=== PATIENT | female | born 1935 | race African-American/Black ===

== ENCOUNTER 2023-11-24 12:52 | Inpatient (IN) | payer MEDICARE ==
[~2023-11-24] VITALS: Ht 162.6 cm; Wt 63.8 kg
[2023-11-24] MEDS ORDERED: SODIUM CHLORIDE 0.9% 1,000 ML IV ONE (13:30)
[2023-11-24 14:29] LABS: BASOPHILS % 0.6 % (0.0-2.0); DIFFERENTIAL COMMENT 0; EOSINOPHILS % 0.1 % (0.0-5.0); HEMATOCRIT. 40.3 % (36.0-48.0); HEMOGLOBIN. 12.4 g/dL (12.0-16.0); LYMPHOCYTES % 13.8 % (20.0-50.0); MEAN CORPUSCULAR HEMOGLOBIN 21.9 pg (28.0-32.0); MEAN CORPUSCULAR HGB CONC 30.7 g/dL (31.0-37.0); MEAN CORPUSCULAR VOLUME 71.5 fL (81.0-99.0); MEAN PLATELET VOLUME 8.1 fl (7.4-10.4); MONOCYTES % 6.6 % (2.0-8.0); NEUTROPHILS % 78.9 % (40.0-76.0); PLATELET 237 x1000/uL (130-400); RED BLOOD CELL COUNT 5.64 mill/uL (4.2-5.4); RED CELL DISTRIBUTION WIDTH 16.2 % (11.6-14.6); WHITE BLOOD COUNT 7.8 x1000/uL (4.5-11.0)
[2023-11-24 14:43] LABS: PARTIAL THROMBOPLASTIN TIME 27.3 sec (23.4-31.0); PROTHROMBIN TIME 11.1 sec (9.6-11.0)
[2023-11-24 15:25] LABS: ALANINE AMINOTRANSFERASE 26 IU/L (10-49); ALBUMIN 4.1 g/dL (3.2-4.8); ASPARTATE AMINOTRANSFERASE 72 IU/L (<34); BILIRUBIN TOTAL 0.7 mg/dL (0.1-1.0); CALCIUM 9.9 mg/dL (8.7-10.4); CARBON DIOXIDE 20 mEq/L (21-32); CHLORIDE 100 mEq/L (98-107); CREATINE KINASE 1362 IU/L (34-145); CREATININE 0.9 mg/dL (0.6-1.0); GLUCOSE 149 mg/dL (70-105); PROTEIN TOTAL 7.5 g/dL (6.0-8.3); SODIUM 135 mEq/L (136-145); UREA NITROGEN BLOOD 41 mg/dL (9-23)
[2023-11-24 15:34] LABS: TROPONIN I HIGH SENSITIVITY 427 ng/L (3.0-34)
[2023-11-24] MEDS ORDERED: ASPIRIN 325MG EC TABLET PO ONE (15:45)
[2023-11-24] MEDS ORDERED: SODIUM CHLORIDE 0.9% 1000ML BAG (SEPSIS BOLUS) IV ONE (16:45)
[2023-11-24] MEDS ORDERED: LEVOFLOXACIN 750MG PREMIX 150 ML IV ONE (16:45)
[2023-11-24 19:50] LABS: TROPONIN I HIGH SENSITIVITY 389 ng/L (3.0-34)
[2023-11-25] MEDS ORDERED: ONDANSETRON HCL 4MG/2ML INJ IV PRN (13:00)
[2023-11-25] MEDS ORDERED: ACETAMINOPHEN 325MG TABLET PO PRN (13:00)
[2023-11-25] MEDS: SODIUM CHLORIDE 0.9% 1,000 ML IV SCH (13:33)
[2023-11-26 03:02] VITALS: BP 150/74; PULSE 84; RESP 17; TEMP 98.7
[2023-11-26 08:00] VITALS: BP 139/83; PULSE 84; RESP 17; TEMP 98.8
[2023-11-26 08:19] LABS: BASOPHILS % 0.1 % (0.0-2.0); EOSINOPHILS % 1.1 % (0.0-5.0); HEMATOCRIT. 33.8 % (36.0-48.0); LYMPHOCYTES % 21.6 % (20.0-50.0); MEAN CORPUSCULAR HEMOGLOBIN 22.5 pg (28.0-32.0); MEAN CORPUSCULAR HGB CONC 32.4 g/dL (31.0-37.0); MEAN CORPUSCULAR VOLUME 69.2 fL (81.0-99.0); MEAN PLATELET VOLUME 8.8 fl (7.4-10.4); MONOCYTES % 10.6 % (2.0-8.0); NEUTROPHILS % 66.6 % (40.0-76.0); PLATELET 194 x1000/uL (130-400); RED BLOOD CELL COUNT 4.89 mill/uL (4.2-5.4); RED CELL DISTRIBUTION WIDTH 15.7 % (11.6-14.6); WHITE BLOOD COUNT 5.2 x1000/uL (4.5-11.0)
[2023-11-26 08:29] LABS: CALCIUM 9.2 mg/dL (8.7-10.4); CARBON DIOXIDE 26 mEq/L (21-32); CHLORIDE 107 mEq/L (98-107); CREATININE 0.7 mg/dL (0.6-1.0); GLUCOSE 191 mg/dL (70-105); SODIUM 138 mEq/L (136-145); UREA NITROGEN BLOOD 20 mg/dL (9-23)
[2023-11-26 08:32] LABS: ADD RBC MORPHOLOGY YES; DIFFERENTIAL COMMENT 1
[2023-11-26] MEDS ORDERED: HYDRALAZINE 20MG/ML VIAL IV PRN (09:00)
[2023-11-26] MEDS ORDERED: ATENOLOL 50 MG TABLET PO SCH (09:00)
[2023-11-26] MEDS ORDERED: DEXTROSE 50% WATER 50ML SYRINGE IV PRN (09:00)
[2023-11-26] MEDS ORDERED: ACETAMINOPHEN 325MG TABLET PO PRN (09:00)
[2023-11-26] MEDS: HEPARIN 5000 UNITS/ML VIAL SUBCUT SCH ×2 (10:14→21:43)
[2023-11-26] MEDS: LEVOFLOXACIN 250MG TABLET PO SCH (10:19)
[2023-11-26] MEDS: SODIUM CHLORIDE 0.9% 1,000 ML IV SCH (11:20)
[2023-11-26] MEDS: BLOOD SUGAR DIAGNOSTIC STRIP TEST SCH ×3 (11:46→21:49)
[2023-11-26 12:00] VITALS: BP 107/98; PULSE 80; RESP 17; TEMP 98.8
[2023-11-26] MEDS: INSULIN LISPRO 100 UNITS/ML SUBCUT SCH ×3 (12:48→21:00)
[2023-11-26] MEDS ORDERED: ASPI-1497 PO (14:00)
[2023-11-26] MEDS ORDERED: ATEN100T PO (14:05)
[2023-11-26] MEDS ORDERED: DILT240C96 PO (14:05)
[2023-11-26] MEDS ORDERED: CHOL400D2 PO (14:05)
[2023-11-26] MEDS ORDERED: BRIM15DR8 EACHEYE (14:05)
[2023-11-26] MEDS ORDERED: DONE23TA3 MT (14:12)
[2023-11-26] MEDS ORDERED: LOVA40TA73 MT (14:12)
[2023-11-26] MEDS ORDERED: OMEP20TA15 PO (14:12)
[2023-11-26] MEDS ORDERED: EMPA25TA PO (14:12)
[2023-11-26] MEDS ORDERED: FLUT30CR TP (14:12)
[2023-11-26] MEDS ORDERED: FERR-71 PO (14:12)
[2023-11-26] MEDS: ASPIRIN 81MG EC TABLET PO SCH (15:39)
[2023-11-26] MEDS: FERROUS SULFATE 325MG TABLET PO SCH (15:39)
[2023-11-26] MEDS: PANTOPRAZOLE 40MG DR TABLET PO SCH ×2 (15:39→21:44)
[2023-11-26 16:00] VITALS: BP 150/74; PULSE 80; RESP 17; TEMP 98.8
[2023-11-26 16:29] LABS: CREATINE KINASE MB FRACTION 6.5 ng/mL (0.5-3.6)
[2023-11-26] MEDS: BRIMONIDINE 0.2% OPHTH DROPS 5ML EACHEYE SCH (18:11)
[2023-11-26 18:19] LABS: ANISOCYTOSIS 1+; MICROCYTOSIS 3+; PLATELET ESTIMATE NORMAL
[2023-11-26 18:20] LABS: OVALOCYTES 1+
[2023-11-26 20:00] VITALS: BP 159/77; PULSE 91; RESP 18; TEMP 98.8
[2023-11-26] MEDS: DONEPEZIL HCL 10MG TABLET PO SCH (21:43)
[2023-11-26] MEDS: ATORVASTATIN CALCIUM 10MG TABLET PO SCH (21:44)
[2023-11-27] VITALS: BP 147/70; PULSE 91; RESP 18; TEMP 99.3
[2023-11-27 04:13] VITALS: BP 150/75; PULSE 85; RESP 17; TEMP 98.6
[2023-11-27] MEDS: SODIUM CHLORIDE 0.9% 1,000 ML IV SCH (05:55)
[2023-11-27] MEDS: PANTOPRAZOLE 40MG DR TABLET PO SCH ×2 (05:56→22:04)
[2023-11-27] MEDS: BLOOD SUGAR DIAGNOSTIC STRIP TEST SCH ×4 (06:09→21:00)
[2023-11-27] MEDS: BRIMONIDINE 0.2% OPHTH DROPS 5ML EACHEYE SCH ×2 (06:09→17:57)
[2023-11-27] MEDS ORDERED: PANTOPRAZOLE 40MG DR TABLET PO SCH (06:50)
[2023-11-27] MEDS: INSULIN LISPRO 100 UNITS/ML SUBCUT SCH ×4 (07:10→21:00)
[2023-11-27 08:00] VITALS: BP 159/77; PULSE 91; RESP 18; TEMP 98.8
[2023-11-27] MEDS: ASPIRIN 81MG EC TABLET PO SCH (08:32)
[2023-11-27] MEDS: FERROUS SULFATE 325MG TABLET PO SCH (08:32)
[2023-11-27] MEDS: ATENOLOL 50 MG TABLET PO SCH (08:34)
[2023-11-27] MEDS: HEPARIN 5000 UNITS/ML VIAL SUBCUT SCH ×2 (08:35→21:50)
[2023-11-27 09:19] LABS: CALCIUM 9.1 mg/dL (8.7-10.4); CARBON DIOXIDE 24 mEq/L (21-32); CHLORIDE 104 mEq/L (98-107); CREATINE KINASE 148 IU/L (34-145); CREATINE KINASE MB FRACTION 3.8 ng/mL (0.5-3.6); CREATININE 0.6 mg/dL (0.6-1.0); GLUCOSE 138 mg/dL (70-105); POTASSIUM 3.7 mEq/L (3.5-5.1); SODIUM 137 mEq/L (136-145); THYROID STIMULATING HORMONE 2.22 uIU/mL (0.55-4.78); TROPONIN I HIGH SENSITIVITY 29 ng/L (3.0-34); UREA NITROGEN BLOOD 14 mg/dL (9-23)
[2023-11-27 09:21] LABS: BASOPHILS % 0.8 % (0.0-2.0); EOSINOPHILS % 2.5 % (0.0-5.0); HEMATOCRIT. 33.6 % (36.0-48.0); HEMOGLOBIN. 10.7 g/dL (12.0-16.0); LYMPHOCYTES % 30.8 % (20.0-50.0); MEAN CORPUSCULAR HEMOGLOBIN 22.2 pg (28.0-32.0); MEAN CORPUSCULAR HGB CONC 31.9 g/dL (31.0-37.0); MEAN CORPUSCULAR VOLUME 69.6 fL (81.0-99.0); MEAN PLATELET VOLUME 8.8 fl (7.4-10.4); MONOCYTES % 9.9 % (2.0-8.0); PLATELET 193 x1000/uL (130-400); RED BLOOD CELL COUNT 4.83 mill/uL (4.2-5.4); RED CELL DISTRIBUTION WIDTH 15.6 % (11.6-14.6)
[2023-11-27 10:42] LABS: DIFFERENTIAL COMMENT 1
[2023-11-27 10:43] LABS: ADD RBC MORPHOLOGY NO
[2023-11-27 12:00] VITALS: BP 150/75; PULSE 76; RESP 22; TEMP 99
[2023-11-27 12:01] LABS: CREATINE KINASE MB FRACTION 4.8 ng/mL (0.5-3.6)
[2023-11-27 16:00] VITALS: BP 137/69; PULSE 76; RESP 20; TEMP 99
[2023-11-27 17:19] LABS: CREATINE KINASE MB FRACTION 2.7 ng/mL (0.5-3.6)
[2023-11-27 20:00] VITALS: BP 138/59; PULSE 71; RESP 18; TEMP 98.6
[2023-11-27] MEDS: ATORVASTATIN CALCIUM 10MG TABLET PO SCH (21:51)
[2023-11-27] MEDS: DONEPEZIL HCL 10MG TABLET PO SCH (21:51)
[2023-11-28] VITALS: BP 145/63; PULSE 76; RESP 21; TEMP 98.1
[2023-11-28] MEDS: SODIUM CHLORIDE 0.9% 1,000 ML IV SCH ×2 (01:00→21:00)
[2023-11-28 04:00] VITALS: BP 142/92; PULSE 72; RESP 18; TEMP 98.8
[2023-11-28 05:33] LABS: CARBON DIOXIDE 26 mEq/L (21-32); CHLORIDE 104 mEq/L (98-107); CREATININE 0.6 mg/dL (0.6-1.0); GLUCOSE 148 mg/dL (70-105); POTASSIUM 3.6 mEq/L (3.5-5.1); SODIUM 138 mEq/L (136-145); UREA NITROGEN BLOOD 12 mg/dL (9-23)
[2023-11-28 05:37] LABS: BASOPHILS % 0.6 % (0.0-2.0); DIFFERENTIAL COMMENT 0; EOSINOPHILS % 4.8 % (0.0-5.0); HEMATOCRIT. 33.6 % (36.0-48.0); HEMOGLOBIN. 10.7 g/dL (12.0-16.0); LYMPHOCYTES % 40.7 % (20.0-50.0); MEAN CORPUSCULAR HEMOGLOBIN 22.6 pg (28.0-32.0); MEAN CORPUSCULAR HGB CONC 31.7 g/dL (31.0-37.0); MEAN CORPUSCULAR VOLUME 71.1 fL (81.0-99.0); MEAN PLATELET VOLUME 8.7 fl (7.4-10.4); MONOCYTES % 8.7 % (2.0-8.0); NEUTROPHILS % 45.2 % (40.0-76.0); PLATELET 194 x1000/uL (130-400); RED BLOOD CELL COUNT 4.73 mill/uL (4.2-5.4); RED CELL DISTRIBUTION WIDTH 15.4 % (11.6-14.6); WHITE BLOOD COUNT 4.2 x1000/uL (4.5-11.0)
[2023-11-28] MEDS: BRIMONIDINE 0.2% OPHTH DROPS 5ML EACHEYE SCH ×2 (06:44→18:12)
[2023-11-28] MEDS: PANTOPRAZOLE 40MG DR TABLET PO SCH ×2 (06:44→21:42)
[2023-11-28] MEDS: BLOOD SUGAR DIAGNOSTIC STRIP TEST SCH ×4 (06:52→21:00)
[2023-11-28 08:00] VITALS: BP 142/92; PULSE 78; RESP 19; TEMP 98.5
[2023-11-28] MEDS: INSULIN LISPRO 100 UNITS/ML SUBCUT SCH ×4 (08:16→21:00)
[2023-11-28] MEDS: ASPIRIN 81MG EC TABLET PO SCH (08:55)
[2023-11-28] MEDS: ATENOLOL 50 MG TABLET PO SCH (08:56)
[2023-11-28] MEDS: FERROUS SULFATE 325MG TABLET PO SCH (08:56)
[2023-11-28] MEDS: HEPARIN 5000 UNITS/ML VIAL SUBCUT SCH ×2 (08:57→21:44)
[2023-11-28] MEDS: LEVOFLOXACIN 250MG TABLET PO SCH (11:52)
[2023-11-28 12:00] VITALS: BP 156/69; PULSE 68; RESP 19; TEMP 97.5
[2023-11-28 16:00] VITALS: BP 159/68; PULSE 71; RESP 18; TEMP 98.7
[2023-11-28] MEDS: DONEPEZIL HCL 10MG TABLET PO SCH (21:42)
[2023-11-28] MEDS: ATORVASTATIN CALCIUM 10MG TABLET PO SCH (21:42)
[2023-11-28] MEDS ORDERED: IOHEXOL-350 100 ML BOTTLE ONE (22:16)
[2023-11-29] VITALS: BP 149/68; PULSE 78; RESP 18; TEMP 98.4
[2023-11-29 04:00] VITALS: BP 129/53; PULSE 65; RESP 12; TEMP 98.6
[2023-11-29] MEDS: BRIMONIDINE 0.2% OPHTH DROPS 5ML EACHEYE SCH ×2 (06:30→18:15)
[2023-11-29] MEDS: PANTOPRAZOLE 40MG DR TABLET PO SCH (06:30)
[2023-11-29] MEDS: BLOOD SUGAR DIAGNOSTIC STRIP TEST SCH ×4 (06:37→20:41)
[2023-11-29] MEDS: INSULIN LISPRO 100 UNITS/ML SUBCUT SCH ×4 (07:07→20:58)
[2023-11-29 08:00] VITALS: BP 111/73; PULSE 77; RESP 22; TEMP 98
[2023-11-29] MEDS: ASPIRIN 81MG EC TABLET PO SCH (08:21)
[2023-11-29] MEDS: FERROUS SULFATE 325MG TABLET PO SCH (08:21)
[2023-11-29] MEDS: HEPARIN 5000 UNITS/ML VIAL SUBCUT SCH ×2 (08:22→20:53)
[2023-11-29] MEDS: ATENOLOL 50 MG TABLET PO SCH (08:22)
[2023-11-29 12:00] VITALS: BP 166/59; PULSE 78; RESP 12; TEMP 97.9
[2023-11-29 16:00] VITALS: BP 154/73; PULSE 76; RESP 14
[2023-11-29] MEDS: SODIUM CHLORIDE 0.9% 1,000 ML IV SCH (18:14)
[2023-11-29 20:00] VITALS: BP 147/92; PULSE 74; RESP 19; TEMP 98.3
[2023-11-29] MEDS: DONEPEZIL HCL 10MG TABLET PO SCH (20:52)
[2023-11-29] MEDS: ATORVASTATIN CALCIUM 10MG TABLET PO SCH (20:52)
[2023-11-30] VITALS: BP 147/61; PULSE 70; RESP 21; TEMP 98.2
[2023-11-30 04:00] VITALS: BP 146/63; PULSE 68; RESP 18; TEMP 98.6
[2023-11-30] MEDS: BRIMONIDINE 0.2% OPHTH DROPS 5ML EACHEYE SCH ×2 (05:41→18:47)
[2023-11-30] MEDS: BLOOD SUGAR DIAGNOSTIC STRIP TEST SCH ×4 (06:00→21:25)
[2023-11-30 08:00] VITALS: BP 147/92; PULSE 74; RESP 19; TEMP 98.3
[2023-11-30] MEDS: FERROUS SULFATE 325MG TABLET PO SCH (09:14)
[2023-11-30] MEDS: ATENOLOL 50 MG TABLET PO SCH (09:14)
[2023-11-30] MEDS: ASPIRIN 81MG EC TABLET PO SCH (09:14)
[2023-11-30] MEDS: HEPARIN 5000 UNITS/ML VIAL SUBCUT SCH ×2 (09:16→21:31)
[2023-11-30] MEDS: INSULIN LISPRO 100 UNITS/ML SUBCUT SCH ×4 (09:27→21:32)
[2023-11-30] MEDS: FAMOTIDINE 20MG TABLET PO SCH (09:29)
[2023-11-30 12:00] VITALS: BP 147/61; PULSE 70; RESP 21; TEMP 98.2
[2023-11-30 16:00] VITALS: BP 166/59; PULSE 78; RESP 12; TEMP 97.9
[2023-11-30 20:00] VITALS: BP 119/48; PULSE 71; RESP 16; TEMP 98.5
[2023-11-30] MEDS: DONEPEZIL HCL 10MG TABLET PO SCH (21:31)
[2023-11-30] MEDS: ATORVASTATIN CALCIUM 10MG TABLET PO SCH (21:31)
[2023-12-01] VITALS: BP 121/66; PULSE 59; RESP 15; TEMP 98.8
[2023-12-01 04:00] VITALS: BP 114/95; PULSE 88; RESP 23; TEMP 97.7
[2023-12-01] MEDS: BLOOD SUGAR DIAGNOSTIC STRIP TEST SCH ×2 (06:14→11:54)
[2023-12-01] MEDS: BRIMONIDINE 0.2% OPHTH DROPS 5ML EACHEYE SCH (06:14)
[2023-12-01] MEDS: INSULIN LISPRO 100 UNITS/ML SUBCUT SCH ×2 (07:20→12:40)
[2023-12-01 08:00] VITALS: BP 119/48; PULSE 71; RESP 16; TEMP 98.5
[2023-12-01] MEDS: FERROUS SULFATE 325MG TABLET PO SCH (09:24)
[2023-12-01] MEDS: FAMOTIDINE 20MG TABLET PO SCH (09:24)
[2023-12-01] MEDS: ASPIRIN 81MG EC TABLET PO SCH (09:24)
[2023-12-01] MEDS: HEPARIN 5000 UNITS/ML VIAL SUBCUT SCH (09:25)
[2023-12-01] MEDS: ATENOLOL 50 MG TABLET PO SCH (09:25)
[2023-12-01 12:00] VITALS: BP 134/55; PULSE 76; RESP 17; TEMP 98.9
[2023-12-01 13:31] VITALS: BP 134/55; PULSE 76; TEMP 98.8; O2SAT 100
== END 2023-12-01 18:41 | DRG 193 ==
LOC: ER 12:52 → EDBEDREQ 20:00 → 3WST 11-25 18:52
PROVIDERS: ADMIT Internal Medicine Pulmonary Disease; ATTEND Internal Medicine Pulmonary Disease
DX: J18.9 Pneumonia, unspecified organism (principal); L89.153 Pressure ulcer of sacral region, stage 3; L89.314 Pressure ulcer of right buttock, stage 4; F03.A0 Unspecified dementia, mild, without behavioral disturbance, psychotic disturbance, mood disturbance, and anxiety; I10 Essential (primary) hypertension; R26.89 Other abnormalities of gait and mobility; I11.9 Hypertensive heart disease without heart failure; Z20.822 Contact with and (suspected) exposure to COVID-19; D64.9 Anemia, unspecified; E78.00 Pure hypercholesterolemia, unspecified; R91.1 Solitary pulmonary nodule; E11.9 Type 2 diabetes mellitus without complications; Z96.643 Presence of artificial hip joint, bilateral; Z79.82 Long term (current) use of aspirin; Z79.84 Long term (current) use of oral hypoglycemic drugs; Z79.899 Other long term (current) drug therapy; Z88.0 Allergy status to penicillin; Z88.1 Allergy status to other antibiotic agents
CPT/HCPCS: 36415; 71045; 71275; 72192; 80048; 80053; 82550; 82553; 82962; 83036; 83605; 83880; 84443; 84484; 85025; 86850; 86900; 87426; 93005; 93880; 93970; 97162; 97166; 97535; 99285; J1644; J1815; J1956; J7030; Q9967

== ENCOUNTER 2024-11-07 15:35 | Emergency (ER) | payer MEDICARE, MEDICAID ==
[~2024-11-07] VITALS: Ht 162.6 cm; Wt 59.0 kg
[~2024-11-07 15:35] MED LIST: ASPI-1497 PO; ATEN100T PO; BRIM15DR8 EACHEYE; CHOL400D2 PO; DILT240C96 PO; DONE23TA3 MT; FERR-71 PO; LOVA40TA73 MT; OMEP20TA15 PO
[2024-11-07 15:37] VITALS: O2SAT 99
[2024-11-07 16:15] LABS: CHLORIDE 105 mEq/L (98-107); POTASSIUM 4.7 mEq/L (3.5-5.1); SODIUM 137 mEq/L (136-145)
[2024-11-07 16:16] LABS: CALCIUM 10.1 mg/dL (8.7-10.4); CARBON DIOXIDE 25 mEq/L (21-32)
[2024-11-07 16:19] LABS: BASOPHILS % 0.3 % (0.0-2.0); DIFFERENTIAL COMMENT 0; EOSINOPHILS % 0.7 % (0.0-5.0); HEMOGLOBIN. 12.4 g/dL (12.0-16.0); LYMPHOCYTES % 18.6 % (20.0-50.0); MEAN CORPUSCULAR HEMOGLOBIN 22.9 pg (28.0-32.0); MEAN CORPUSCULAR HGB CONC 31.7 g/dL (31.0-37.0); MEAN CORPUSCULAR VOLUME 72.1 fL (81.0-99.0); MEAN PLATELET VOLUME 8.1 fl (7.4-10.4); MONOCYTES % 6.3 % (2.0-8.0); NEUTROPHILS % 74.1 % (40.0-76.0); PLATELET 224 x1000/uL (130-400); WHITE BLOOD COUNT 4.5 x1000/uL (4.5-11.0)
[2024-11-07 16:20] LABS: PROTHROMBIN TIME 10.9 sec (9.6-11.0)
[2024-11-07 16:21] LABS: GLUCOSE 156 mg/dL (70-105); UREA NITROGEN BLOOD 21 mg/dL (9-23)
[2024-11-07] MEDS: MORPHINE SULFATE 4 MG/ML INJ (FOR IV/IM USE) IV ONE (16:38)
[2024-11-07 22:00] VITALS: BP 138/71; PULSE 64; RESP 14; TEMP 36.83628; O2SAT 97
[2024-11-07] MEDS: MORPHINE SULFATE 2 MG/ML INJ (NOT FOR IM USE) IV ONE (22:49)
== END 2024-11-07 22:30 | disposition short-term general hospital (02) ==
LOC: ER 15:35
DX: S42.211A Unspecified displaced fracture of surgical neck of right humerus, initial encounter for closed fracture (principal); E11.42 Type 2 diabetes mellitus with diabetic polyneuropathy; I10 Essential (primary) hypertension; Z79.82 Long term (current) use of aspirin; Z79.899 Other long term (current) drug therapy; Z88.0 Allergy status to penicillin; Z88.1 Allergy status to other antibiotic agents; W01.0XXA Fall on same level from slipping, tripping and stumbling without subsequent striking against object, initial encounter; Y93.89 Activity, other specified; Y92.89 Other specified places as the place of occurrence of the external cause; Y99.8 Other external cause status
CPT/HCPCS: 99285; 96374; 96375; 80048; 85025; 85610; 86850; 86900; 86901; 36415; 73030; 73060; J2270 ×2